=== PATIENT | male | born 1935 | race Caucasian/White ===

== ENCOUNTER 2017-02-22 09:46 | Inpatient (IN) | payer MEDICARE, BC ==
[2017-02-22] MEDS ORDERED: cefTRIAXone 2 GM in Sodium Chloride 0.9% 50 ML IV ONE (09:58)
[2017-02-22] MEDS ORDERED: Levofloxacin/Dextrose 5%-Water 750 MG in Premix Bag 1 BAG IV ONE (09:58)
--- NOTE | 2017-02-22 10:01 | EDM.PDOC ---
[id number] [id number] Pain Score (Numeric/FACES): 0 abdomenal Pain Score (Numeric/FACES): 3 - Related Data Allergies Allergy/AdvReac Type Severity Reaction Status Date / Time No Known Allergies Allergy Verified 02/22/17 10:00 Home Meds: Home Meds NK [No Known Home Meds] 02/22/17 [History] ED ROS GENERAL - Review of Systems Review Of Systems: See Below Constitutional: Reports: fever, chills, malaise, weakness HEENT: Reports: Rhinitis Respiratory: Reports: Cough. Denies: Shortness of Breath Cardiovascular: Denies: Chest pain GI/Abdominal: Denies: Abdominal pain, Nausea, Vomiting : Reports: incontinence Skin: Reports: diaphoresis Neurological: Reports: Confusion. Denies: Headache Psychiatric: Reports: No symptoms ED EXAM, SEPSIS - Physical Exam Exam: See Below Exam Limited By: Altered mental status (Somewhat confused due to fever) General Appearance: alert, mild distress Eye Exam: bilateral eye: EOMI Throat/Mouth: Normal inspection Head: atraumatic Respiratory/Chest: no respiratory distress Cardiovascular: tachycardia GI/Abdominal: Normal Bowel Sounds, Soft, Non-Tender Extremities: pedal edema (Just a trace of symmetric lower extremity edema) Neurological: alert, confused Psychiatric: anxious Skin: Warm, Dry, Diaphoretic Course - Vital Signs Last Recorded V/S: Last Vital Signs Temp 96.9 F 02/24/17 07:53 Pulse 59 L 02/24/17 07:53 Resp 16 02/24/17 07:53 BP 123/73 02/24/17 07:53 Pulse Ox 94 L 02/24/17 07:53 - Orders/Labs/Meds Orders: Medication Orders Levofloxacin/Dextrose 500 mg/ (Premix) 100 mls @ 100 mls/hr IV Q24H [facility] Last Admin: 02/23/17 10:06 Dose: 100 mls/hr Ceftriaxone Sodium 1 gm/ (Sodium Chloride) 50 mls @ 100 mls/hr IV Q24H [facility] Last Admin: 02/23/17 10:04 Dose: 100 mls/hr Tamsulosin HCl (Flomax) 0.4 mg PO PCBREAKFAST [facility] Labs: Laboratory Tests 02/22/17 02/22/17 02/22/17 Range/Units 09:54 10:12 10:12 WBC 8.5 (4.5-11.0) K/uL RBC 5.07 (4.30-5.90) M/uL Hgb 14.8 (12.0-15.0) g/dL Hct 43.7 (40.0-54.0) % MCV 86 (80-98) fL MCH 29 (27-31) pg MCHC 34 (32-36) % Plt Count 195 (150-400) K/uL Neut % (Auto) 93 H (36-66) % Lymph % (Auto) 4 L (24-44) % [place] % (Auto) 3 (2-6) % Eos % (Auto) 0 L (2-4) % Baso % (Auto) 0 (0-1) % Sodium 139 L (140-148) mmol/L Potassium 4.1 (3.6-5.2) mmol/L Chloride 104 (100-108) mmol/L Carbon Dioxide 20 L (21-32) mmol/L Anion Gap 19.1 H (5.0-14.0) mmol/L BUN 25 H (7-18) mg/dL Creatinine 1.4 H (0.8-1.3) mg/dL Est Cr Clr Drug Dosing 43.33 mL/min Estimated GFR (MDRD) 49 L (>60) Glucose 128 H (74-106) mg/dL Lactic Acid (0.4-2.0) mmol/L Calcium 8.0 L (8.5-10.1) mg/dL Total Bilirubin 2.0 H (0.2-1.0) mg/dL AST 41 H (15-37) U/L ALT 50 (12-78) U/L Alkaline Phosphatase 212 H (46-116) U/L Total Protein 6.1 L (6.4-8.2) g/dL Albumin 3.0 L (3.4-5.0) g/dL Globulin 3.1 (2.3-3.5) g/dL Albumin/Globulin Ratio 1.0 L (1.2-2.2) Urine Color Yellow Urine Appearance Turbid Urine pH 5.0 (4.5-8.0) Ur Specific [place] 1.020 (1.008-1.030) Urine Protein Trace (NEGATIVE) mg/dL Urine Glucose (UA) Normal (NEGATIVE) mg/dL Urine Ketones Negative (NEGATIVE) mg/dL Urine Occult Blood Large (NEGATIVE) Urine Nitrite Negative (NEGAITVE) Urine Bilirubin Negative (NEGATIVE) Urine Urobilinogen 4 (NORMAL) mg/dL Ur Leukocyte Esterase Large (NEGATIVE) Urine RBC >100 H (0-5) Urine WBC >100 H (0-5) Ur Epithelial Cells Not seen Amorphous Sediment Not seen Urine Bacteria Many Urine Mucus Not seen 02/22/17 Range/Units 10:12 WBC (4.5-11.0) K/uL RBC (4.30-5.90) M/uL Hgb (12.0-15.0) g/dL Hct (40.0-54.0) % MCV (80-98) fL MCH (27-31) pg MCHC (32-36) % Plt Count (150-400) K/uL Neut % (Auto) (36-66) % Lymph % (Auto) (24-44) % [place] % (Auto) (2-6) % Eos % (Auto) (2-4) % Baso % (Auto) (0-1) % Sodium (140-148) mmol/L Potassium (3.6-5.2) mmol/L Chloride (100-108) mmol/L Carbon Dioxide (21-32) mmol/L Anion Gap (5.0-14.0) mmol/L BUN (7-18) mg/dL Creatinine (0.8-1.3) mg/dL Est Cr Clr Drug Dosing mL/min Estimated GFR (MDRD) (>60) Glucose (74-106) mg/dL Lactic Acid 7.2 H (0.4-2.0) mmol/L Calcium (8.5-10.1) mg/dL Total Bilirubin (0.2-1.0) mg/dL AST (15-37) U/L ALT (12-78) U/L Alkaline Phosphatase (46-116) U/L Total Protein (6.4-8.2) g/dL Albumin (3.4-5.0) g/dL Globulin (2.3-3.5) g/dL Albumin/Globulin Ratio (1.2-2.2) Urine Color Urine Appearance Urine pH (4.5-8.0) Ur Specific [place] (1.008-1.030) Urine Protein (NEGATIVE) mg/dL Urine Glucose (UA) (NEGATIVE) mg/dL Urine Ketones (NEGATIVE) mg/dL Urine Occult Blood (NEGATIVE) Urine Nitrite (NEGAITVE) Urine Bilirubin (NEGATIVE) Urine Urobilinogen (NORMAL) mg/dL Ur Leukocyte Esterase (NEGATIVE) Urine RBC (0-5) Urine WBC (0-5) Ur Epithelial Cells Amorphous Sediment Urine Bacteria Urine Mucus Meds: Medications Generic Name Dose Route Start Last Admin Trade Name Freq PRN Reason Stop Dose Admin Levofloxacin/Dextrose 500 mg/ 100 mls @ 100 mls/hr 02/23/17 10:00 02/23/17 10 :06 Premix IV 100 mls/hr Q24H [facility]OR[facility] Administration Ceftriaxone Sodium 1 gm/ 50 mls @ 100 mls/hr 02/23/17 09:00 02/23/17 10:04 Sodium Chloride IV 100 mls/hr Q24H [facility]OR[facility] Administration Tamsulosin HCl 0.4 mg 02/24/17 09:00 Flomax PO PCBREAKFAST [facility]OR[facility] Discontinued Medications Generic Name Dose Route Start Last Admin Trade Name Freq PRN Reason Stop Dose Admin Acetaminophen 1,000 mg 02/22/17 10:18 02/22/17 10:34 Tylenol Extra Strength PO 02/22/17 10:19 1,000 mg ONETIME ONE Administration Levofloxacin/Dextrose 750 mg/ 150 mls @ 100 mls/hr 02/22/17 09:58 02/22/17 11 :24 Premix IV 02/22/17 11:27 100 mls/hr ONETIME ONE Administration Ceftriaxone Sodium 2 gm/ 50 mls @ 100 mls/hr 02/22/17 09:58 02/22/17 10:41 Sodium Chloride IV 02/22/17 10:27 100 mls/hr ONETIME ONE Administration Sodium Chloride 1,000 mls @ 500 mls/hr 02/22/17 10:15 02/22/17 10:40 Normal Saline IV 500 mls/hr ASDIRECTED [facility]OR[facility]ZA Administration Dextrose/Sodium Chloride 1,000 mls @ 150 mls/hr 02/22/17 18:30 02/23/17 16:38 Dextrose 5%-Normal Saline IV 150 mls/hr ASDIRECTED [facility] Administration Iohexol 20 ml 02/23/17 15:30 02/23/17 15:16 Omnipaque-300 PO 02/23/17 15:31 20 ml ONETIME ONE Administration Tamsulosin HCl 0.4 mg 02/23/17 20:00 02/23/17 20:44 Flomax PO 02/23/17 20:01 0.4 mg ONETIME ONE Administration - Re-Assessments/Exams Free Text/Narrative Re-Assessment/Exam: 02/22/17 10:02 This patient presents with an acute significant fever, rigors, and incontinence after 2-3 days of cold symptoms. He also has developed urine and bowel incontinence this morning. The suspicion is a sepsis from either a urinary or pulmonary source. 02/22/17 10:53 Chest x-ray was poor inspiration but no definite infiltrate was seen. Urine was strongly positive with many WBCs and bacteria. A urine culture was started. White count was normal lactic acid was 7.2 and bilirubin was 2.0. Normal saline was started as well as 2 g of Rocephin and 750 mg of Levaquin IV after blood cultures were obtained. Dr. Bhatti was called for admission for urosepsis. Patient was given 1000 mg of oral Tylenol. Departure - Departure Time of Disposition: 15:21 Disposition: Admitted As Inpatient 65 Clinical Impression: Systemic infection, Acute UTI ED HPI SEPSIS - General Chief Complaint: Fever Stated Complaint: SHAKY BREATHING PROBLEMS Time Seen by Provider: 02/22/17 09:50 Source: Reports: Patient, Family History Limitations: Reports: Altered mental status (Somewhat confused) - History of Present Illness INITIAL COMMENTS - FREE TEXT/NARRATIVE: 81-year-old male who is usually healthy has had a cold for the last several days , has been taking some cold medications but started coughing more in the last 12 -24 hours, today became very febrile, confused, shaking chills and incontinent. Denies any pain, no nausea or vomiting. Severity: moderate Associated symptoms: Reports: confusion, cough, fever/chills, other (This morning has developed bowel and bladder incontinence) - Related Data Allergies/ADRs: Allergies Allergy/AdvReac Type Severity Reaction Status Date / Time No Known Allergies Allergy Verified 02/22/17 10:00 Home Meds: Home Meds NK [No Known Home Meds] 02/22/17 [History] Departure - Departure Time of Disposition: 15:21 Disposition: Admitted As Inpatient 65 Condition: fair Clinical Impression: Systemic infection, Acute UTI
[2017-02-22] MEDS ORDERED: Sodium Chloride 0.9% 1,000 ML IV SCH (10:15)
[2017-02-22] MEDS ORDERED: Acetaminophen 500 MG Tab PO ONE (10:18)
--- NOTE | 2017-02-22 10:31 | CR ---
Chest 1V Frontal FINDINGS: There are shallow lung volumes with basilar atelectasis. The heart and vascular structures are normal in appearance. No infiltrates or effusions are demonstrated. The skeletal structures are unremarkable. IMPRESSION: 1. No acute findings.
--- NOTE | 2017-02-22 12:46 | PCM.HP ---
[id number] Diagnosis/Problem Admission Diagnosis/Problem Septicemia History Limitations: Reports: No limitations - History of Present Illness Initial Comments - Free Text/Narative: He has been passing stools for the last 1 week 2-3 times daily. Yesterday he had blood in the urine. This morning be begun having [id number] and fever then violent shaking and came to the ER. Urine was found to be infected and started on antibiotics and I was called to admit him for treatment. He is complaining about pain in both hips since he started with the shaking. Symptom Onset Date: 02/22/17 Duration of Symptoms: Reports: Hour(s): abdomenal Pain Score (Numeric/FACES): 3 Lower Back Pain Score (Numeric/FACES): 0 - Related Data Allergies/Adverse Reactions: Allergies Allergy/AdvReac Type Severity Reaction Status Date / Time No Known Allergies Allergy Verified 02/22/17 10:00 Home Medications: Home Meds NK [No Known Home Meds] 02/22/17 [History] Past Medical History HEENT History: Reports: Hard of hearing, Impaired vision Cardiovascular History: Reports: Other (see below) Other Cardiovascular History: irregular heart rythm Genitourinary History: Reports: Renal calculus 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 Social & Family History - Tobacco Use Smoking Status *Q: Never Smoker Second Hand Smoke Exposure: No - Caffeine Use Caffeine Use: Reports: Soda - Recreational Drug Use Recreational Drug Use: No H&P Review of Systems - Review of Systems: Review Of Systems: See Below General: Reports: fever, chills, weakness, weight loss HEENT: Reports: no symptoms Pulmonary: Reports: No Symptoms Cardiovascular: Reports: no symptoms Gastrointestinal: Reports: Other (Increased frequency of stools) Musculoskeletal: Reports: joint pain, muscle pain Psychiatric: Reports: no symptoms Exam - Exam Exam: See Below - Vital Signs Vital Signs: Last Vital Signs Temp 100.2 F 02/22/17 11:30 Pulse 96 02/22/17 10:51 Resp 20 02/22/17 09:54 BP 101/52 L 02/22/17 10:51 Pulse Ox 91 L 02/22/17 10:51 Weight: 245 lb - Exam General: alert, oriented, 4 HEENT: PERRLA, Hearing intact, Mucosa moist & pink, Nares patent, Normal nasal septum, Posterior pharynx clear, Conjunctiva clear, EOMI, EACs clear, TMs clear Neck: supple, trachea midline, 2 Lungs: Clear to auscultation, Normal respiratory effort Cardiovascular: regular rate Abdomen: Normal Bowel Sounds, Soft Peripheral Pulses: 1+: radial (L), radial (R) Neurological: cranial nerves intact, reflexes equal bilateral, abnormal gait Neuro Extensive - Mental Status: alert, oriented x3, normal mood/affect, normal cognition, memory intact Neuro Extensive - Motor, Sensory, Reflexes: CN II-XII intact DTR: 1+: patella (L), patella (R) - Patient Data Lab Results last 24 hrs: Laboratory Results - last 24 hr 02/22/17 02/22/17 02/22/17 Range/Units 09:54 10:12 10:12 WBC 8.5 (4.5-11.0) K/uL RBC 5.07 (4.30-5.90) M/uL Hgb 14.8 (12.0-15.0) g/dL Hct 43.7 (40.0-54.0) % MCV 86 (80-98) fL MCH 29 (27-31) pg MCHC 34 (32-36) % Plt Count 195 (150-400) K/uL Neut % (Auto) 93 H (36-66) % Lymph % (Auto) 4 L (24-44) % [place] % (Auto) 3 (2-6) % Eos % (Auto) 0 L (2-4) % Baso % (Auto) 0 (0-1) % Sodium 139 L (140-148) mmol/L Potassium 4.1 (3.6-5.2) mmol/L Chloride 104 (100-108) mmol/L Carbon Dioxide 20 L (21-32) mmol/L Anion Gap 19.1 H (5.0-14.0) mmol/L BUN 25 H (7-18) mg/dL Creatinine 1.4 H (0.8-1.3) mg/dL Est Cr Clr Drug Dosing 43.33 mL/min Estimated GFR (MDRD) 49 L (>60) Glucose 128 H (74-106) mg/dL Lactic Acid (0.4-2.0) mmol/L Calcium 8.0 L (8.5-10.1) mg/dL Total Bilirubin 2.0 H (0.2-1.0) mg/dL AST 41 H (15-37) U/L ALT 50 (12-78) U/L Alkaline Phosphatase 212 H (46-116) U/L Total Protein 6.1 L (6.4-8.2) g/dL Albumin 3.0 L (3.4-5.0) g/dL Globulin 3.1 (2.3-3.5) g/dL Albumin/Globulin Ratio 1.0 L (1.2-2.2) Urine Color Yellow Urine Appearance Turbid Urine pH 5.0 (4.5-8.0) Ur Specific [place] 1.020 (1.008-1.030) Urine Protein Trace (NEGATIVE) mg/dL Urine Glucose (UA) Normal (NEGATIVE) mg/dL Urine Ketones Negative (NEGATIVE) mg/dL Urine Occult Blood Large (NEGATIVE) Urine Nitrite Negative (NEGAITVE) Urine Bilirubin Negative (NEGATIVE) Urine Urobilinogen 4 (NORMAL) mg/dL Ur Leukocyte Esterase Large (NEGATIVE) Urine RBC >100 H (0-5) Urine WBC >100 H (0-5) Ur Epithelial Cells Not seen Amorphous Sediment Not seen Urine Bacteria Many Urine Mucus Not seen 02/22/17 Range/Units 10:12 WBC (4.5-11.0) K/uL RBC (4.30-5.90) M/uL Hgb (12.0-15.0) g/dL Hct (40.0-54.0) % MCV (80-98) fL MCH (27-31) pg MCHC (32-36) % Plt Count (150-400) K/uL Neut % (Auto) (36-66) % Lymph % (Auto) (24-44) % [place] % (Auto) (2-6) % Eos % (Auto) (2-4) % Baso % (Auto) (0-1) % Sodium (140-148) mmol/L Potassium (3.6-5.2) mmol/L Chloride (100-108) mmol/L Carbon Dioxide (21-32) mmol/L Anion Gap (5.0-14.0) mmol/L BUN (7-18) mg/dL Creatinine (0.8-1.3) mg/dL Est Cr Clr Drug Dosing mL/min Estimated GFR (MDRD) (>60) Glucose (74-106) mg/dL Lactic Acid 7.2 H (0.4-2.0) mmol/L Calcium (8.5-10.1) mg/dL Total Bilirubin (0.2-1.0) mg/dL AST (15-37) U/L ALT (12-78) U/L Alkaline Phosphatase (46-116) U/L Total Protein (6.4-8.2) g/dL Albumin (3.4-5.0) g/dL Globulin (2.3-3.5) g/dL Albumin/Globulin Ratio (1.2-2.2) Urine Color Urine Appearance Urine pH (4.5-8.0) Ur Specific [place] (1.008-1.030) Urine Protein (NEGATIVE) mg/dL Urine Glucose (UA) (NEGATIVE) mg/dL Urine Ketones (NEGATIVE) mg/dL Urine Occult Blood (NEGATIVE) Urine Nitrite (NEGAITVE) Urine Bilirubin (NEGATIVE) Urine Urobilinogen (NORMAL) mg/dL Ur Leukocyte Esterase (NEGATIVE) Urine RBC (0-5) Urine WBC (0-5) Ur Epithelial Cells Amorphous Sediment Urine Bacteria Urine Mucus Result Diagrams: 02/23/17 05:11 02/23/17 05:11 *Q Meaningful Use (ADM) - VTE *Q VTE Criteria *Q: - Stroke *Q Stroke Criteria *Q: - AMI *Q AMI Criteria *Q: Problem List Initiated/Reviewed/Updated: Yes Orders Last 24hrs: Active Orders 24 hr Category Date Time Status Patient Status [ADT] Routine ADT 02/22/17 12:25 Ordered Ambulate [RC] QID Care 02/22/17 12:25 Ordered Height and Weight [RC] DAILY Care 02/22/17 12:25 Ordered Intake and Output [RC] QSHIFT Care 02/22/17 12:34 Ordered Oxygen Therapy [RC] PRN Care 02/22/17 12:25 Ordered Up ad Laya [RC] ASDIRECTED Care 02/22/17 12:25 Ordered Up to Chair [RC] QID Care 02/22/17 12:25 Ordered VTE/DVT Education [RC] Per Unit Routine Care 02/22/17 12:25 Ordered Vital Signs [RC] Q4H Care 02/22/17 12:25 Ordered Regular Diet [DIET] Diet 02/22/17 Dinner Ordered BASIC METABOLIC PANEL,BMP [CHEM] AM Lab 02/23/17 05:11 Ordered CBC WITH AUTO DIFF [HEME] AM Lab 02/23/17 05:11 Ordered CULTURE BLOOD [BC] Urgent Lab 02/22/17 10:12 Received CULTURE BLOOD [BC] Urgent Lab 02/22/17 10:12 Received CULTURE URINE [RM] Stat Lab 02/22/17 10:21 Received Levofloxacin/Dextrose 5%-Water [Levaquin in D5W 500 MG/ Med 02/23/17 05:11 Ordered 100 ML] 500 mg Premix Bag 1 bag IV Q24H Sodium Chloride 0.9% [Normal Saline] 1,000 ml Med 02/22/17 10:15 Active IV ASDIRECTED cefTRIAXone [Rocephin] 1 gm Med 02/23/17 05:11 Ordered Sodium Chloride 0.9% [Normal Saline] 50 ml IV Q24H Blood Culture x2 Reflex Set [OM.PC] Urgent Oth 02/22/17 09:54 Ordered Resuscitation Status Routine Resus Stat 02/22/17 12:25 Ordered Medication Orders Sodium Chloride (Normal Saline) 1,000 mls @ 500 mls/hr IV ASDIRECTED [facility] Last Admin: 02/22/17 10:40 Dose: 500 mls/hr Assessment/Plan Comment:: Assessment/plan: #1. Septicemia with UTI. I have started him on Rocephin and Levaquin. Blood cultures are pending.
[2017-02-22] MEDS: Dextrose 5%-0.9% NaCl 1,000 ML IV SCH (19:08)
[2017-02-23] MEDS: Dextrose 5%-0.9% NaCl 1,000 ML IV SCH ×3 (01:49→16:38)
[2017-02-23] MEDS: cefTRIAXone 1 GM in Sodium Chloride 0.9% 50 ML IV SCH (10:04)
[2017-02-23] MEDS: Levofloxacin/Dextrose 5%-Water 500 MG in Premix Bag 1 BAG IV SCH (10:06)
[2017-02-23] MEDS ORDERED: Iohexol 300 MG/ML 30 ML Bottle PO ONE (14:17)
[2017-02-23] MEDS ORDERED: Iohexol 647 MG/ML 10 ML SDV PO ONE (15:30)
--- NOTE | 2017-02-23 17:43 | PCM.PN ---
- General Info Functional Status: Reports: pain controlled - Review of Systems General: Reports: Fever, Weakness, Fatigue HEENT: Reports: no symptoms Pulmonary: Reports: no symptoms Cardiovascular: Reports: No Symptoms Gastrointestinal: Reports: No symptoms Genitourinary: Reports: no symptoms Musculoskeletal: Reports: no symptoms Skin: Reports: no symptoms Neurological: Reports: No Symptoms Psychiatric: Reports: no symptoms - Patient Data Vitals - most recent: Last Vital Signs Temp 97.8 F 02/23/17 15:48 Pulse 65 02/23/17 15:48 Resp 16 02/23/17 15:48 BP 111/68 02/23/17 15:48 Pulse Ox 92 L 02/23/17 15:48 Weight - most recent: 245 lb I&O - last 24 hours: Intake & Output 02/23/17 02/23/17 02/23/17 06:59 14:59 22:59 Intake Total 1504 890 Output Total 50 365 Balance 1454 525 Lab Results last 24 hrs: Laboratory Results - last 24 hr 02/23/17 02/23/17 02/23/17 Range/Units 05:11 05:11 09:46 WBC 19.4 H (4.5-11.0) K/uL RBC 4.49 (4.30-5.90) M/uL Hgb 12.9 (12.0-15.0) g/dL Hct 38.9 L (40.0-54.0) % MCV 87 (80-98) fL MCH 29 (27-31) pg MCHC 33 (32-36) % Plt Count 153 (150-400) K/uL Neut % (Auto) 87 H (36-66) % Lymph % (Auto) 5 L (24-44) % [place] % (Auto) 8 H (2-6) % Eos % (Auto) 0 L (2-4) % Baso % (Auto) 0 (0-1) % Sodium 140 (140-148) mmol/L Potassium 4.0 (3.6-5.2) mmol/L Chloride 108 (100-108) mmol/L Carbon Dioxide 24 (21-32) mmol/L Anion Gap 7.7 (5.0-14.0) mmol/L BUN 27 H (7-18) mg/dL Creatinine 1.2 (0.8-1.3) mg/dL Est Cr Clr Drug Dosing 50.34 mL/min Estimated GFR (MDRD) 58 L (>60) Glucose 144 H (74-106) mg/dL Calcium 7.7 L (8.5-10.1) mg/dL Urine Color Yellow Urine Appearance Cloudy Urine pH 5.0 (4.5-8.0) Ur Specific [place] 1.020 (1.008-1.030) Urine Protein 30 H (NEGATIVE) mg/dL Urine Glucose (UA) Normal (NEGATIVE) mg/dL Urine Ketones Negative (NEGATIVE) mg/dL Urine Occult Blood Large (NEGATIVE) Urine Nitrite Negative (NEGAITVE) Urine Bilirubin Small (NEGATIVE) Urine Urobilinogen 8 (NORMAL) mg/dL Ur Leukocyte Esterase Large (NEGATIVE) Urine RBC 30-40 H (0-5) Urine WBC Semi-packed H (0-5) Ur Epithelial Cells Moderate Amorphous Sediment Not seen Urine Bacteria Moderate Urine Mucus Not seen Med Orders - Current: Current Medications Levofloxacin/Dextrose 500 mg/ (Premix) 100 mls @ 100 mls/hr IV Q24H [facility] Last Admin: 02/23/17 10:06 Dose: 100 mls/hr Ceftriaxone Sodium 1 gm/ (Sodium Chloride) 50 mls @ 100 mls/hr IV Q24H [facility] Last Admin: 02/23/17 10:04 Dose: 100 mls/hr Dextrose/Sodium Chloride (Dextrose 5%-Normal Saline) 1,000 mls @ 150 mls/hr IV ASDIRECTED [facility] Last Admin: 02/23/17 16:38 Dose: 150 mls/hr Discontinued Medications Acetaminophen (Tylenol Extra Strength) 1,000 mg PO ONETIME ONE Stop: 02/22/17 10:19 Last Admin: 02/22/17 10:34 Dose: 1,000 mg Levofloxacin/Dextrose 750 mg/ (Premix) 150 mls @ 100 mls/hr IV ONETIME ONE Stop: 02/22/17 11:27 Last Admin: 02/22/17 11:24 Dose: 100 mls/hr Ceftriaxone Sodium 2 gm/ (Sodium Chloride) 50 mls @ 100 mls/hr IV ONETIME ONE Stop: 02/22/17 10:27 Last Admin: 02/22/17 10:41 Dose: 100 mls/hr Sodium Chloride (Normal Saline) 1,000 mls @ 500 mls/hr IV ASDIRECTED [facility] Last Admin: 02/22/17 10:40 Dose: 500 mls/hr Iohexol (Omnipaque-300) 20 ml PO ONETIME ONE Stop: 02/23/17 15:31 Last Admin: 02/23/17 15:16 Dose: 20 ml - Exam General: alert, oriented Neck: supple Lungs: Clear to auscultation, Normal respiratory effort Cardiovascular: Regular Rate, Regular Rhythm Abdomen: bowel sounds present, soft, no distension, other (Mild pain over the bladder area.) Back Exam: vertebral tenderness Extremities: no edema Peripheral Pulses: 1+: radial (L), radial (R) - Problem List Review Problem List Initiated/Reviewed/Updated: Yes - My Orders Last 24 Hours: My Active Orders 02/22/17 18:30 Dextrose 5%-0.9% NaCl [Dextrose 5%-Normal Saline] 1,000 ml IV ASDIRECTED 02/22/17 20:19 SCD [Sequential Compression Device] [OM.PC] Routine 02/23/17 09:00 cefTRIAXone [Rocephin] 1 gm Sodium Chloride 0.9% [Normal Saline] 50 ml IV Q24H 02/23/17 09:03 PT Evaluation and Treatment [CONS] Routine 02/23/17 10:00 Levofloxacin/Dextrose 5%-Water [Levaquin in D5W 500 MG/100 ML] 500 mg Premix Bag 1 bag IV Q24H 02/23/17 14:10 Bladder Scan [RC] ONETIME 02/23/17 14:12 Abdomen Pelvis wo Cont [CT] Routine 02/24/17 05:11 BASIC METABOLIC PANEL,BMP [CHEM] Routine CBC WITH AUTO DIFF [HEME] Routine - Plan Plan:: Assessment/plan: #1. Septicemia with UTI. The WBC this morning was elevated to 19.4 from [address] of the abdomen today show no acute pathology. The urine residual showed 350 cc. Will repeat the blood work in the morning. Will continue with the antibiotics. Will start Flomax.
[2017-02-23] MEDS ORDERED: Tamsulosin 0.4 MG Cap.ER PO ONE (20:00)
[2017-02-24] MEDS: Tamsulosin 0.4 MG Cap.ER PO SCH (08:53)
[2017-02-24] MEDS: cefTRIAXone 1 GM in Sodium Chloride 0.9% 50 ML IV SCH (08:55)
[2017-02-24] MEDS ORDERED: Sodium Chloride 0.9% 250 ML IV SCH (09:15)
[2017-02-24] MEDS: Levofloxacin/Dextrose 5%-Water 500 MG in Premix Bag 1 BAG IV SCH (10:13)
--- NOTE | 2017-02-24 18:54 | PCM.PN ---
- General Info Date of Service: 02/24/17 Admission Dx/Problem (Free Text): Making progress as the urine is clear this afternoon. - Review of Systems General: Reports: No Symptoms HEENT: Reports: no symptoms Pulmonary: Reports: no symptoms Cardiovascular: Reports: No Symptoms Gastrointestinal: Reports: No symptoms Genitourinary: Reports: dysuria, frequency, burning Musculoskeletal: Reports: leg pain Skin: Reports: no symptoms Neurological: Reports: No Symptoms Psychiatric: Reports: no symptoms - Patient Data Vitals - most recent: Last Vital Signs Temp 98 F 02/24/17 15:10 Pulse 65 02/24/17 15:10 Resp 16 02/24/17 15:10 BP 122/73 02/24/17 15:10 Pulse Ox 96 02/24/17 15:10 Weight - most recent: 247 lb I&O - last 24 hours: Intake & Output 02/24/17 02/24/17 02/24/17 06:59 14:59 22:59 Intake Total 700 390 620 Output Total 400 775 600 Balance 300 -385 20 Lab Results last 24 hrs: Laboratory Results - last 24 hr 02/24/17 02/24/17 Range/Units 04:25 04:25 WBC 11.1 H (4.5-11.0) K/uL RBC 4.48 (4.30-5.90) M/uL Hgb 12.9 (12.0-15.0) g/dL Hct 38.7 L (40.0-54.0) % MCV 86 (80-98) fL MCH 29 (27-31) pg MCHC 33 (32-36) % Plt Count 118 L (150-400) K/uL Neut % (Auto) 73 H (36-66) % Lymph % (Auto) 8 L (24-44) % [place] % (Auto) 18 H (2-6) % Eos % (Auto) 1 L (2-4) % Baso % (Auto) 0 (0-1) % Sodium 139 L (140-148) mmol/L Potassium 3.6 (3.6-5.2) mmol/L Chloride 107 (100-108) mmol/L Carbon Dioxide 24 (21-32) mmol/L Anion Gap 11.6 (5.0-14.0) mmol/L BUN 22 H (7-18) mg/dL Creatinine 1.1 (0.8-1.3) mg/dL Est Cr Clr Drug Dosing 54.92 mL/min Estimated GFR (MDRD) > 60 (>60) Glucose 95 (74-106) mg/dL Calcium 7.6 L (8.5-10.1) mg/dL Med Orders - Current: Current Medications Levofloxacin/Dextrose 500 mg/ (Premix) 100 mls @ 100 mls/hr IV Q24H [facility] Last Admin: 02/24/17 10:13 Dose: 100 mls/hr Ceftriaxone Sodium 1 gm/ (Sodium Chloride) 50 mls @ 100 mls/hr IV Q24H [facility] Last Admin: 02/24/17 08:55 Dose: 100 mls/hr Sodium Chloride (Normal Saline) 250 mls @ 25 mls/hr IV ASDIRECTED [facility] Last Admin: 02/24/17 10:13 Dose: 25 mls/hr Tamsulosin HCl (Flomax) 0.4 mg PO PCBREAKFAST [facility] Last Admin: 02/24/17 08:53 Dose: 0.4 mg Discontinued Medications Acetaminophen (Tylenol Extra Strength) 1,000 mg PO ONETIME ONE Stop: 02/22/17 10:19 Last Admin: 02/22/17 10:34 Dose: 1,000 mg Levofloxacin/Dextrose 750 mg/ (Premix) 150 mls @ 100 mls/hr IV ONETIME ONE Stop: 02/22/17 11:27 Last Admin: 02/22/17 11:24 Dose: 100 mls/hr Ceftriaxone Sodium 2 gm/ (Sodium Chloride) 50 mls @ 100 mls/hr IV ONETIME ONE Stop: 02/22/17 10:27 Last Admin: 02/22/17 10:41 Dose: 100 mls/hr Sodium Chloride (Normal Saline) 1,000 mls @ 500 mls/hr IV ASDIRECTED [facility] Last Admin: 02/22/17 10:40 Dose: 500 mls/hr Dextrose/Sodium Chloride (Dextrose 5%-Normal Saline) 1,000 mls @ 150 mls/hr IV ASDIRECTED [facility] Last Admin: 02/23/17 16:38 Dose: 150 mls/hr Iohexol (Omnipaque-300) 20 ml PO ONETIME ONE Stop: 02/23/17 15:31 Last Admin: 02/23/17 15:16 Dose: 20 ml Tamsulosin HCl (Flomax) 0.4 mg PO ONETIME ONE Stop: 02/23/17 20:01 Last Admin: 02/23/17 20:44 Dose: 0.4 mg - Exam General: alert, oriented Neck: supple Lungs: Clear to auscultation, Normal respiratory effort Cardiovascular: Regular Rate, Regular Rhythm Abdomen: bowel sounds present, soft, no tenderness, no distension Peripheral Pulses: 1+: Radial (L), Radial (R) Skin: warm, dry, intact Neurological: no new focal deficit - Problem List Review Problem List Initiated/Reviewed/Updated: Yes - My Orders Last 24 Hours: My Active Orders 02/23/17 17:55 Convert IV to Saline Lock [OM.PC] Routine 02/24/17 09:00 Tamsulosin [Flomax] 0.4 mg PO PCBREAKFAST 02/24/17 09:15 Sodium Chloride 0.9% [Normal Saline] 250 ml IV ASDIRECTED 02/25/17 05:11 CBC WITH AUTO DIFF [HEME] Routine COMPREHENSIVE METABOLIC PN,CMP [CHEM] Routine UA W/MICROSCOPIC [URIN] Routine - Plan Plan:: Assessment/plan: #1. Septicemia with UTI. WBC is dropped from yesterday. Plan home if stable in the morning. 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 I started him on tamsulosin 0.4 mg daily. His urine residual was checked again and was just over 300 cc of urine. #3. Hip pain. He still having hip pain but gradually improving which I feel is secondary to a violent shaking that he had when he had septicemia.
--- NOTE | 2017-02-25 09:04 | PCM.PN ---
[id number] has cleared and feeling much better but still has mild pain in his hips but this is improving. He does pass urine increased frequency. He does not feel febrile and he is getting his strength back. Functional Status: Reports: pain controlled - Review of Systems General: Reports: Weakness Cardiovascular: Reports: No Symptoms Gastrointestinal: Reports: Diarrhea Genitourinary: Reports: frequency, retention Musculoskeletal: Reports: no symptoms Skin: Reports: no symptoms, dryness Neurological: Reports: No Symptoms Psychiatric: Reports: no symptoms - Patient Data Vitals - most recent: Last Vital Signs Temp 97.4 F 02/25/17 04:00 Pulse 60 02/25/17 04:00 Resp 18 02/25/17 04:00 BP 110/69 02/25/17 04:00 Pulse Ox 95 02/25/17 04:00 Weight - most recent: 247 lb I&O - last 24 hours: Intake & Output 02/24/17 02/25/17 02/25/17 22:59 06:59 14:59 Intake Total 620 Output Total 600 425 150 Balance 20 -425 -150 Lab Results last 24 hrs: Laboratory Results - last 24 hr 02/25/17 02/25/17 02/25/17 Range/Units 04:29 04:29 07:34 WBC 7.9 (4.5-11.0) K/uL RBC 4.67 (4.30-5.90) M/uL Hgb 13.2 (12.0-15.0) g/dL Hct 39.7 L (40.0-54.0) % MCV 85 (80-98) fL MCH 28 (27-31) pg MCHC 33 (32-36) % Plt Count 183 (150-400) K/uL Neut % (Auto) 73 H (36-66) % Lymph % (Auto) 12 L (24-44) % [place] % (Auto) 13 H (2-6) % Eos % (Auto) 2 (2-4) % Baso % (Auto) 1 (0-1) % Sodium 143 (140-148) mmol/L Potassium 3.8 (3.6-5.2) mmol/L Chloride 110 H (100-108) mmol/L Carbon Dioxide 22 (21-32) mmol/L Anion Gap 14.8 H (5.0-14.0) mmol/L BUN 19 H (7-18) mg/dL Creatinine 0.9 (0.8-1.3) mg/dL Est Cr Clr Drug Dosing 67.12 mL/min Estimated GFR (MDRD) > 60 (>60) Glucose 97 (74-106) mg/dL Calcium 7.5 L (8.5-10.1) mg/dL Total Bilirubin 0.2 D (0.2-1.0) mg/dL AST 29 (15-37) U/L ALT 27 (12-78) U/L Alkaline Phosphatase 143 H (46-116) U/L Total Protein 5.2 L (6.4-8.2) g/dL Albumin 2.1 L (3.4-5.0) g/dL Globulin 3.1 (2.3-3.5) g/dL Albumin/Globulin Ratio 0.7 L (1.2-2.2) Urine Color Yellow Urine Appearance Slightly cloudy Urine pH 6.0 (4.5-8.0) Ur Specific [place] 1.015 (1.008-1.030) Urine Protein Negative (NEGATIVE) mg/dL Urine Glucose (UA) Normal (NEGATIVE) mg/dL Urine Ketones Negative (NEGATIVE) mg/dL Urine Occult Blood Moderate (NEGATIVE) Urine Nitrite Negative (NEGAITVE) Urine Bilirubin Negative (NEGATIVE) Urine Urobilinogen Normal (NORMAL) mg/dL Ur Leukocyte Esterase Moderate (NEGATIVE) Urine RBC 5-10 H (0-5) Urine WBC 10-20 H (0-5) Ur Epithelial Cells Few Amorphous Sediment Not seen Urine Bacteria Rare Urine Mucus Moderate Med Orders - Current: Current Medications Levofloxacin/Dextrose 500 mg/ (Premix) 100 mls @ 100 mls/hr IV Q24H [facility] Last Admin: 02/24/17 10:13 Dose: 100 mls/hr Ceftriaxone Sodium 1 gm/ (Sodium Chloride) 50 mls @ 100 mls/hr IV Q24H [facility] Last Admin: 02/24/17 08:55 Dose: 100 mls/hr Sodium Chloride (Normal Saline) 250 mls @ 25 mls/hr IV ASDIRECTED [facility] Last Admin: 02/24/17 10:13 Dose: 25 mls/hr Tamsulosin HCl (Flomax) 0.4 mg PO PCBREAKFAST [facility] Last Admin: 02/24/17 08:53 Dose: 0.4 mg Discontinued Medications Acetaminophen (Tylenol Extra Strength) 1,000 mg PO ONETIME ONE Stop: 02/22/17 10:19 Last Admin: 02/22/17 10:34 Dose: 1,000 mg Levofloxacin/Dextrose 750 mg/ (Premix) 150 mls @ 100 mls/hr IV ONETIME ONE Stop: 02/22/17 11:27 Last Admin: 02/22/17 11:24 Dose: 100 mls/hr Ceftriaxone Sodium 2 gm/ (Sodium Chloride) 50 mls @ 100 mls/hr IV ONETIME ONE Stop: 02/22/17 10:27 Last Admin: 02/22/17 10:41 Dose: 100 mls/hr Sodium Chloride (Normal Saline) 1,000 mls @ 500 mls/hr IV ASDIRECTED [facility] Last Admin: 02/22/17 10:40 Dose: 500 mls/hr Dextrose/Sodium Chloride (Dextrose 5%-Normal Saline) 1,000 mls @ 150 mls/hr IV ASDIRECTED [facility] Last Admin: 02/23/17 16:38 Dose: 150 mls/hr Iohexol (Omnipaque-300) 20 ml PO ONETIME ONE Stop: 02/23/17 15:31 Last Admin: 02/23/17 15:16 Dose: 20 ml Tamsulosin HCl (Flomax) 0.4 mg PO ONETIME ONE Stop: 02/23/17 20:01 Last Admin: 02/23/17 20:44 Dose: 0.4 mg - Exam General: alert, oriented HEENT: Pupils equal Neck: supple Lungs: Clear to auscultation Cardiovascular: Regular Rate Extremities: no edema Peripheral Pulses: 2+: Radial (L), Radial (R) - Problem List Review Problem List Initiated/Reviewed/Updated: Yes - My Orders Last 24 Hours: My Active Orders 02/24/17 09:00 Tamsulosin [Flomax] 0.4 mg PO PCBREAKFAST 02/24/17 09:15 Sodium Chloride 0.9% [Normal Saline] 250 ml IV ASDIRECTED 02/25/17 09:03 Ready for Discharge [RC] PER UNIT ROUTINE - Plan Plan:: Assessment/plan: #1. Septicemia with UTI. WBC is dropped from yesterday. Plan home today on ciprofloxacin 500 mg twice a day #2. Prostatic hypertrophy with urinary tract obstruction. The urine residual is just over 300milliliters. I started him on Flomax and will continue with this at home. #3. Hip pain with bursitis. I feel that this is secondary to the shaking chills that he had when he came in to the emergency room. It is been suggested that he continue physical therapy as an outpatient.
--- NOTE | 2017-02-25 09:05 | PCM.DCSUM1 ---
[id number] over his body and came to the emergency room and was admitted. Of concern is he started to have change in bowel habits 3 days before he had the shaking chills and it was thought that he was suffering from urosepsis. The concern was the infection of the urinary tract is on frequent in the mail and would need to find a secondary source if possible. - Discharge Data Discharge Date: 02/25/17 Discharge Disposition: Home, Self-Care 01 Condition: Good - Patient Summary/Data Consults: Consultations 02/23/17 09:03 PT Evaluation and Treatment [CONS] Routine Please Evaluate and Treat. PT Reason for Consult: weakness This query below is only for informational purposes and is not editable. Admission Diagnosis/Problem: Septicemia Hospital Course: Kenny was admitted to the hospital and urosepsis. Started immediately on Rocephin and Levaquin. The cultures did come back Escherichia coli in all sources including blood and urine. While in the hospital I did do a CT of the abdomen which did not show any evidence of an acute pathology. His white count went up to close to 20 pounds of the second day it came back down to normal the day of discharge. As mentioned above the urinalysis and urine for CT was done which showed an acute urosepsis and repeat culture report is pending at the time of discharge. - Patient Instructions Diet: Heart Healthy Diet Activity: As Tolerated - Discharge Plan Prescriptions/Med Rec: Ciprofloxacin/Ciprofloxa HCl [Cipro Xr 500 mg Tablet] 500 mg PO BID #20 tbmp.24hr Home Medications: Home Meds Ciprofloxacin/Ciprofloxa HCl [Cipro Xr 500 mg Tablet] 500 mg PO BID #20 tbmp.24hr 02/25/17 [Rx] Tamsulosin [Flomax] 0.4 mg PO PCBREAKFAST cap.er 02/25/17 [Rx] Forms: ED Department Discharge Referrals: Cipriano Bhatti Sr, MD [Primary Care Provider] - - General Info Date of Service: 02/25/17 Subjective Update: The day of discharge she was feeling good and has no complaints. Functional Status: Reports: pain controlled - Review of Systems General: Reports: No Symptoms, Weakness HEENT: Reports: no symptoms Pulmonary: Reports: no symptoms Cardiovascular: Reports: No Symptoms Gastrointestinal: Reports: Diarrhea Genitourinary: Reports: no symptoms, incontinence Musculoskeletal: Reports: other Skin: Reports: no symptoms Neurological: Reports: No Symptoms - Patient Data Vitals - Most Recent: Last Vital Signs Temp 97.4 F 02/25/17 04:00 Pulse 60 02/25/17 04:00 Resp 18 02/25/17 04:00 BP 110/69 02/25/17 04:00 Pulse Ox 95 02/25/17 04:00 Weight - Most Recent: 247 lb I&O - Last 24 hours: Intake & Output 02/24/17 02/25/17 02/25/17 22:59 06:59 14:59 Intake Total 620 Output Total 600 425 150 Balance 20 -425 -150 Lab Results - Last 24 hrs: Laboratory Results - last 24 hr 02/25/17 02/25/17 02/25/17 Range/Units 04:29 04:29 07:34 WBC 7.9 (4.5-11.0) K/uL RBC 4.67 (4.30-5.90) M/uL Hgb 13.2 (12.0-15.0) g/dL Hct 39.7 L (40.0-54.0) % MCV 85 (80-98) fL MCH 28 (27-31) pg MCHC 33 (32-36) % Plt Count 183 (150-400) K/uL Neut % (Auto) 73 H (36-66) % Lymph % (Auto) 12 L (24-44) % [place] % (Auto) 13 H (2-6) % Eos % (Auto) 2 (2-4) % Baso % (Auto) 1 (0-1) % Sodium 143 (140-148) mmol/L Potassium 3.8 (3.6-5.2) mmol/L Chloride 110 H (100-108) mmol/L Carbon Dioxide 22 (21-32) mmol/L Anion Gap 14.8 H (5.0-14.0) mmol/L BUN 19 H (7-18) mg/dL Creatinine 0.9 (0.8-1.3) mg/dL Est Cr Clr Drug Dosing 67.12 mL/min Estimated GFR (MDRD) > 60 (>60) Glucose 97 (74-106) mg/dL Calcium 7.5 L (8.5-10.1) mg/dL Total Bilirubin 0.2 D (0.2-1.0) mg/dL AST 29 (15-37) U/L ALT 27 (12-78) U/L Alkaline Phosphatase 143 H (46-116) U/L Total Protein 5.2 L (6.4-8.2) g/dL Albumin 2.1 L (3.4-5.0) g/dL Globulin 3.1 (2.3-3.5) g/dL Albumin/Globulin Ratio 0.7 L (1.2-2.2) Urine Color Yellow Urine Appearance Slightly cloudy Urine pH 6.0 (4.5-8.0) Ur Specific [place] 1.015 (1.008-1.030) Urine Protein Negative (NEGATIVE) mg/dL Urine Glucose (UA) Normal (NEGATIVE) mg/dL Urine Ketones Negative (NEGATIVE) mg/dL Urine Occult Blood Moderate (NEGATIVE) Urine Nitrite Negative (NEGAITVE) Urine Bilirubin Negative (NEGATIVE) Urine Urobilinogen Normal (NORMAL) mg/dL Ur Leukocyte Esterase Moderate (NEGATIVE) Urine RBC 5-10 H (0-5) Urine WBC 10-20 H (0-5) Ur Epithelial Cells Few Amorphous Sediment Not seen Urine Bacteria Rare Urine Mucus Moderate Med Orders - Current: Current Medications Levofloxacin/Dextrose 500 mg/ (Premix) 100 mls @ 100 mls/hr IV Q24H [facility] Last Admin: 02/24/17 10:13 Dose: 100 mls/hr Ceftriaxone Sodium 1 gm/ (Sodium Chloride) 50 mls @ 100 mls/hr IV Q24H [facility] Last Admin: 02/24/17 08:55 Dose: 100 mls/hr Sodium Chloride (Normal Saline) 250 mls @ 25 mls/hr IV ASDIRECTED [facility] Last Admin: 02/24/17 10:13 Dose: 25 mls/hr Tamsulosin HCl (Flomax) 0.4 mg PO PCBREAKFAST [facility] Last Admin: 02/24/17 08:53 Dose: 0.4 mg Discontinued Medications Acetaminophen (Tylenol Extra Strength) 1,000 mg PO ONETIME ONE Stop: 02/22/17 10:19 Last Admin: 02/22/17 10:34 Dose: 1,000 mg Levofloxacin/Dextrose 750 mg/ (Premix) 150 mls @ 100 mls/hr IV ONETIME ONE Stop: 02/22/17 11:27 Last Admin: 02/22/17 11:24 Dose: 100 mls/hr Ceftriaxone Sodium 2 gm/ (Sodium Chloride) 50 mls @ 100 mls/hr IV ONETIME ONE Stop: 02/22/17 10:27 Last Admin: 02/22/17 10:41 Dose: 100 mls/hr Sodium Chloride (Normal Saline) 1,000 mls @ 500 mls/hr IV ASDIRECTED [facility] Last Admin: 02/22/17 10:40 Dose: 500 mls/hr Dextrose/Sodium Chloride (Dextrose 5%-Normal Saline) 1,000 mls @ 150 mls/hr IV ASDIRECTED [facility] Last Admin: 02/23/17 16:38 Dose: 150 mls/hr Iohexol (Omnipaque-300) 20 ml PO ONETIME ONE Stop: 02/23/17 15:31 Last Admin: 02/23/17 15:16 Dose: 20 ml Tamsulosin HCl (Flomax) 0.4 mg PO ONETIME ONE Stop: 02/23/17 20:01 Last Admin: 02/23/17 20:44 Dose: 0.4 mg - Exam General: Reports: alert, oriented HEENT: Reports: Pupils equal Neck: Reports: supple Lungs: Reports: Clear to auscultation, Normal respiratory effort Cardiovascular: Reports: Regular Rate, Regular Rhythm Abdomen: Reports: bowel sounds present, soft, no tenderness, no distension Back Exam: Reports: Normal Inspection, Full Range of Motion Skin: Reports: warm, dry, intact Neurological: Reports: no new focal deficit Psy/Mental Status: Reports: alert, normal affect, normal mood Physical Findings Comments:: There is mild pain to palpation over the bladder area. *Q Meaningful Use (DIS) - VTE *Q VTE Criteria *Q: - Stroke *Q Stroke Criteria *Q: - AMI *Q AMI Criteria *Q:
[2017-02-25] MEDS: Tamsulosin 0.4 MG Cap.ER PO SCH (09:26)
[2017-02-25] MEDS: cefTRIAXone 1 GM in Sodium Chloride 0.9% 50 ML IV SCH (09:28)
[2017-02-25 09:41] VITALS: BP 130/74
== END 2017-02-25 10:52 | disposition home or self-care (01) | DRG 872 ==
LOC: JP.ED 09:46 → JP.MS 12:25
PROVIDERS: ADMIT Internal Medicine; ATTEND Internal Medicine
DX: A41.51 Sepsis due to Escherichia coli [E. coli] (principal); N39.0 Urinary tract infection, site not specified; N13.8 Other obstructive and reflux uropathy; M25.559 Pain in unspecified hip; N40.1 Benign prostatic hyperplasia with lower urinary tract symptoms
CPT/HCPCS: 36415; 51798; 71010; 71010-26; 74176; 80048; 80053; 81001; 83605; 85025; 87040; 87077; 87086; 87088; 87186; 96365; 96366; 96367; 97162-GP; 97530-GP; 99285; 99285-25; A9270-GY; J0696; J1956; J7040; J7050